=== PATIENT | male | born 1985 | race Caucasian/White ===

== ENCOUNTER 2020-01-20 17:05 | Emergency (ER) | payer BC, OTHER ==
[~2020-01-20] VITALS: Ht 185.4 cm; Wt 90.7 kg
[2020-01-20 17:05] VITALS: BP 151/90
[2020-01-20 18:50] LABS: URINE BILIRUBIN NEGATIVE (Negative); URINE BLOOD TRACE (Negative); URINE CLARITY CLEAR; URINE COLOR YELLOW; URINE GLUCOSE-RANDOM* NEGATIVE (Negative); URINE KETONES NEGATIVE (Negative); URINE LEUKOCYTES-REFLEX NEGATIVE (Negative); URINE NITRITE-REFLEX NEGATIVE (Negative); URINE PROTEIN (DIPSTICK) NEGATIVE (Negative); URINE SPECIFIC GRAVITY 1.025 (1.005-1.035); URINE UROBILINOGEN 0.2 E.U./dl (0.2-1.0)
[2020-01-20] MEDS ORDERED: BACTRIM DS TAB1 EACH PO (19:14)
[2020-01-21] MEDS ORDERED: NO HOME MEDS (01:26)
== END 2020-01-20 19:39 | disposition home or self-care (01) ==
LOC: ER 17:05
PROVIDERS: Nurse Practitioner
DX: N41.0 Acute prostatitis (principal); R36.9 Urethral discharge, unspecified; Z20.2 Contact with and (suspected) exposure to infections with a predominantly sexual mode of transmission; F17.210 Nicotine dependence, cigarettes, uncomplicated

== ENCOUNTER 2020-09-06 22:34 | Emergency (ER) | payer BC, OTHER ==
[~2020-09-06] VITALS: Ht 185.4 cm; Wt 99.8 kg
[~2020-09-06 22:34] MED LIST: BACTRIM DS TAB1 EACH PO; NO HOME MEDS
[2020-09-06] MEDS ORDERED: FLEXERIL PO (22:52)
[2020-09-06] MEDS ORDERED: HYDROCODON-ACE1 EAC7 PO (22:52)
[2020-09-06] MEDS ORDERED: IBUPROFEN 600600 M1 PO (22:53)
[2020-09-07 00:27] LABS: ABSOLUTE NEUTROPHILS 9.2 thou/uL (1.4-8.2); BASOPHILS 0.6 % (0.0-2.0); EOSINOPHILS 1.7 % (0.0-3.0); HEMATOCRIT 44.2 % (42.0-52.0); HEMOGLOBIN 15.3 gm/dL (14.0-18.0); LYMPHOCYTES 22.6 % (24.0-44.0); MCH 31.5 pg (26.0-34.0); MCHC 34.5 g/dL (28.0-37.0); MCV 91.1 fL (80.0-100.0); PLATELET COUNT 296 thou/uL (150-400); POLYS 66.1 % (36.0-66.0); RBC 4.85 mil/uL (4.50-6.00); RDW 13.3 % (10.5-14.5)
[2020-09-07 00:29] LABS: CALCIUM 8.9 mg/dL (8.5-10.1); CREATININE 1.1 mg/dL (0.7-1.3); POTASSIUM 4.1 mmol/L (3.5-5.1)
[2020-09-07 00:33] LABS: INR 0.97; PROTIME 10.6 Seconds (9.3-11.4)
[2020-09-07 00:35] LABS: ALBUMIN 3.6 g/dL (3.4-5.0); TOTAL BILIRUBIN 0.2 mg/dL (0.2-1.0); TOTAL PROTEIN 7.2 g/dL (6.4-8.2)
[2020-09-07] MEDS ORDERED: ZANAFLEX4 MG PO (03:10)
[2020-09-07] MEDS ORDERED: NAPROSYN500 MG PO (03:10)
[2020-09-07 03:30] VITALS: BP 153/86
== END 2020-09-07 03:30 | disposition home or self-care (01) ==
LOC: ER 22:34
PROVIDERS: Emergency Medicine
DX: S29.012A Strain of muscle and tendon of back wall of thorax, initial encounter (principal); R07.89 Other chest pain; R04.2 Hemoptysis; Z79.899 Other long term (current) drug therapy; Z90.49 Acquired absence of other specified parts of digestive tract; V89.9XXA Person injured in unspecified vehicle accident, initial encounter; Y93.89 Activity, other specified; Y92.89 Other specified places as the place of occurrence of the external cause; Y99.8 Other external cause status